=== PATIENT | female | born 1995 | race Asian ===

== ENCOUNTER 2018-10-13 12:31 | Emergency (ER) | payer OTHER ==
--- NOTE | 2018-10-13 13:23 | ED ---
Abdominal Pain/Female - HPI Summary HPI Summary: This patient is a 23 year old F brought in by ambulance to [facility] with a chief complaint of right lower flank pain radiating to her right shoulder at 10:30 today lasting for 30 minutes. Patient now only feels mild pain. She reports that the pain was a sore feeling with numbness, such that she couldnt move her right side. Patient denies vomiting, diarrhea, fever, any pain, dysuria, changes in urinary frequency, and chills. Her last normal BM was last night. Patient denies being sexually active. She is currently on the 5th day of her menstrual period and reports that she usually only gets pain on her menstrual periods on the first day. Patient was not given any medication in the ambulance and denies any PMHx of kidney stones. - History of Current Complaint Chief Complaint: EDAbdPain Stated Complaint: ABD PAIN PER EMS Time Seen by Provider: 10/13/18 13:04 Hx Obtained From: Patient Onset/Duration: Lasting Minutes - 30 minutes, Resolved Timing: Frequency Of Episodes - 1 Severity Currently: Mild Pain Intensity: 0 Pain Scale Used: 0-10 Numeric Location: Flank - Right flank Radiates: Yes Radiates to: Other - Right shoulder Character: Other: - Sore and numb Associated Signs and Symptoms: Negative: Fever, Urinary Symptoms - dysuria and changes in frequency, Vomiting, Diarrhea, Other: - Any pain, chills PMH/Surg Hx/FS Hx/Imm Hx Endocrine/Hematology History: Denies: Hx Diabetes Cardiovascular History: Denies: Hx Coronary Artery Disease - Surgical History Surgery Procedure, Year, and Place: None Infectious Disease History: No Infectious Disease History: Denies: Traveled Outside the [place] in Last 30 Days - Family History Known Family History: Negative: Cardiac Disease, Diabetes - Social History Alcohol Use: None Hx Substance Use: No Hx Tobacco Use: No Review of Systems Negative: Fever, Chills Negative: Vomiting, Diarrhea Positive: flank pain - Right flank pain radiating to her right shoulder. It was a sore feeling with numbness, such that she couldnt move her right side. Negative: dysuria, frequency Negative: Other - any pain All Other Systems Reviewed And Are Negative: Yes Physical Exam - Summary Physical Exam Summary: GENERAL: Patient is a well-developed and nourished __(F)__ who is lying comfortable in the stretcher. Patient is not in any acute respiratory distress. HEAD AND FACE: Normocephalic EYES: PERRLA, EOMI x 2. EARS: Hearing grossly intact. MOUTH: Oropharynx within normal limits. NECK: Supple, trachea is midline, no adenopathy, no JVD, no carotid bruit. CHEST: Symmetric, no tenderness at palpation LUNGS: Clear to auscultation bilaterally. No wheezing or crackles. CVS: Regular rate and rhythm, S1 and S2 present, no murmurs or gallops appreciated. ABDOMEN: Soft, mildly tender on right lower side. Bowel sounds are normal. No abdominal abnormal pulsations. EXTREMITIES: Full ROM in all major joints, no edema, no cyanosis or clubbing. NEURO: Alert and oriented x 3. No acute neurological deficits. Speech is normal and follows commands. SKIN: Dry and warm Triage Information Reviewed: Yes Vital Signs On Initial Exam: Initial Vitals Temp Pulse Resp BP Pulse Ox 98.3 F 79 16 100/71 99 10/13/18 12:32 10/13/18 12:32 10/13/18 12:32 10/13/18 12:32 10/13/18 12:32 Vital Signs Reviewed: Yes Diagnostics - Vital Signs Vital Signs Temp Pulse Resp BP Pulse Ox 10/13/18 13:19 78 110/64 100 10/13/18 13:18 79 99 10/13/18 12:32 98.3 F 79 16 100/71 99 - Laboratory Result Diagrams: 10/13/18 13:46 10/13/18 13:46 Lab Statement: Any lab studies that have been ordered have been reviewed, and results considered in the medical decision making process. - Ultrasound No standard instances Ultrasound Interpretation Completed By: Radiologist Summary of Ultrasound Findings: 15:26 Gallbladder US. MILD RIGHT HYDRONEPHROSIS. 15:27 Pelvis US. TRACE AMOUNT OF FREE FLUID WITHIN THE PELVIS. THIS MAY BE PHYSIOLOGIC WITHIN A. REPRODUCTIVE AGE FEMALE. OTHERWISE UNREMARKABLE TRANSABDOMINAL ULTRASOUND OF THE PELVIS. 15:28 Abdomen US. THE APPENDIX IS NOT VISUALIZED. THERE IS NO FREE OR LOCULATED FLUID WITHIN THE RIGHT LOWER. QUADRANT. ED Physician has reviewed this imaging report. Abdominal Pain Fem Course/Dx - Course Course Of Treatment: This patient is a 23 year old F brought in by ambulance to [facility] with a chief complaint of right lower flank pain radiating to her right shoulder at 10:30 today lasting for 30 minutes. Physical exam revealed that she was mildly tender on her right lower flank and quadrant. 15:26 Gallbladder US. MILD RIGHT HYDRONEPHROSIS. 15:27 Pelvis US. TRACE AMOUNT OF FREE FLUID WITHIN THE PELVIS. THIS MAY BE PHYSIOLOGIC WITHIN A. REPRODUCTIVE AGE FEMALE. OTHERWISE UNREMARKABLE TRANSABDOMINAL ULTRASOUND OF THE PELVIS. 15:28 Abdomen US. THE APPENDIX IS NOT VISUALIZED. THERE IS NO FREE OR LOCULATED FLUID WITHIN THE RIGHT LOWER. QUADRANT. I discussed results with patient and she reports feeling better. She is hemodynamically stable and safe for discharge with dx of hydronephrosis of her right kidney. Strict return precautions given and she will otherwise follow up with his/her PCP. I also referred her to Dr. Lozano, urology, for followup. - Diagnoses Provider Diagnoses: Hydronephrosis of right kidney Discharge - Sign-Out/Discharge Documenting (check all that apply): Patient Departure - D/C home Patient Received Moderate/Deep Sedation with Procedure: No - Discharge Plan Condition: Stable Disposition: HOME Patient Education Materials: Kidney Stones (ED), Hydronephrosis (ED) Referrals: Terrance Lozano MD [Medical Doctor] - 3 Days Additional Instructions: Follow up with your primary care physician and Dr. Lozano, urology, in 1-3 days. RETURN TO THE EMERGENCY DEPARTMENT FOR CHANGING OR WORSENING SYMPTOMS. - Billing Disposition and Condition Condition: STABLE Disposition: Home - Attestation Statements Document Initiated by Clarence: Yes Documenting Scribe: Mckinley Christie Provider For Whom Clarence is Documenting (Include Credential): Theo Booth MD Scribe Attestation: Mckinley Johnson, scribed for Theo Booth MD on 10/13/18 at 1800. Scribe Documentation Reviewed: Yes Provider Attestation: The documentation as recorded by the Mckinley marsh accurately reflects the service I personally performed and the decisions made by me, Theo Booth MD Status of Scribe Document: Viewed
[2018-10-13 13:55] LABS: ABS Basophils 0 10^3/ul (0-0.2); ABS Eosinophils 0 10^3/ul (0-0.6); ABS Monocytes 0.4 10^3/ul (0-0.8); ABS Neutrophils 10.3 10^3/ul (1.5-7.7); ABS Nucleated RBC 0 10^3/ul; Eosinophil % 0.3 %; Hematocrit 38 % (33-41); Hemoglobin 12.9 g/dL (12.0-16.0); Lymphocyte % 8.3 %; Mean Corpuscular HGB Conc 35 g/dL (31-36); Mean Corpuscular Hemoglobin 31 pg (27-31); Mean Corpuscular Volume 90 fL (80-97); Mean Platelet Volume 7.3 fL (7.4-10.4); Nucleated Red Blood Cells % 0; Platelet Count 321 10^3/uL (150-450); Red Blood Count 4.16 10^6 /uL (3.70-4.87); Red Cell Distribution Width 12 % (10.5-15); White Blood Count 11.7 10^3/uL (3.5-10.8)
[2018-10-13 14:13] LABS: ALT 7 U/L (7-52); AST 13 U/L (13-39); Albumin 4.3 g/dL (3.2-5.2); Albumin/Globulin Ratio 1.6 (1-3); Alkaline Phosphatase 42 U/L (34-104); Anion Gap 7 mmol/L (2-11); BUN/Creatinine Ratio 18.2 (8-20); Blood Urea Nitrogen 12 mg/dL (6-24); C Reactive Protein < 1.00 mg/L (<8.01); CO2 Carbon Dioxide 23 mmol/L (22-32); Calcium 8.7 mg/dL (8.6-10.3); Chloride 106 mmol/L (101-111); EGFR African American 134.3 (>60); Globulin 2.7 g/dL (2-4); Glucose 94 mg/dL (70-100); Potassium 3.7 mmol/L (3.5-5.0); Sodium 136 mmol/L (135-145)
[2018-10-13 14:17] LABS: Urine Appearance Cloudy; Urine Bilirubin Negative (Negative); Urine Blood Negative (Negative); Urine Color Yellow; Urine Glucose Negative (Negative); Urine Ketones Negative (Negative); Urine Nitrite Negative (Negative); Urine Protein Negative (Negative); Urine Specific Gravity 1.021 (1.010-1.030); Urine Urobilinogen Negative (Negative)
[2018-10-13 14:18] LABS: HCG Pregnancy < 0.60 mIU/mL
[2018-10-13 15:54] VITALS: BP 0/0
== END 2018-10-13 15:53 | disposition home or self-care (01) ==
LOC: ED 12:31 → EDSEX 12:31 → ED 15:53
DX: N13.30 Unspecified hydronephrosis (principal); Z87.442 Personal history of urinary calculi; M25.511 Pain in right shoulder; R20.0 Anesthesia of skin
CPT/HCPCS: 36415; 76705; 76856; 80053; 81003; 83605; 83690; 84702; 85025; 86140; 99283

== ENCOUNTER 2019-05-09 18:09 | Emergency (ER) | payer OTHER ==
--- NOTE | 2019-05-09 18:44 | ED ---
Substance Abuse/Use - HPI Summary HPI Summary: Pt is a 23 y/o F presenting to the ED after an overdose of Zzzquil. Pt states she feels depressed and after an argument with her boyfriend, pt took 12 pills of Zzzquil at around 17:00 on 05/09/19. Pt states she wanted to sleep it away. Pt denies she tried attempting suicide or has SI. Pt admits SI in middle school with no attempt that has since resolved. Pt feels drowsiness and fatigue. Pt denies alcohol, tobacco, or drug use. Pt denies any medications, PSHx, or PMHx. Pt is a [employer] student. Pt is from [facility], but lives alone. Pt has been with her boyfriend for one year. Pt will be signed out to Dr. Reyes at 22:00 on 05/09/19 pending evaluation. - History Of Current Complaint Chief Complaint: EDOverdose Stated Complaint: OVERDOSE PER EMS Time Seen by Provider: 05/09/19 18:17 Hx Obtained From: Patient Ingestion History: Type/Name Of Drug - Zzzquil, Amount Ingested - 12 pills of Zzzquil Overdose Characteristics: Oral Severity Initially: Moderate Severity Currently: Moderate Character: Depressed Aggravating Factor(s): Recent Stress - Argument with boyfriend Alleviating Factor(s): Nothing Associated Signs And Symptoms: Intentional Ingestion, Other: - Positive drowsiness and fatigue - Allergies/Home Medications Allergies/Adverse Reactions: Allergies Allergy/AdvReac Type Severity Reaction Status Date / Time No Known Allergies Allergy Verified 05/09/19 18:28 Home Medications: Home Medications NK [No Home Medications Reported] 05/09/19 [History Confirmed 05/09/19] PMH/Surg Hx/FS Hx/Imm Hx Previously Healthy: Yes Endocrine/Hematology History: Denies: Hx Diabetes Cardiovascular History: Denies: Hx Coronary Artery Disease Sensory History: Denies: Hx Legally Blind, Hx Deafness Opthamlomology History: Denies: Hx Legally Blind EENT History: Denies: Hx Deafness - Surgical History Surgical History: None Surgery Procedure, Year, and Place: None - Immunization History Immunizations Up to Date: Yes Infectious Disease History: No Infectious Disease History: Denies: Traveled Outside the [place] in Last 30 Days - Family History Known Family History: Negative: Cardiac Disease, Diabetes - Social History Occupation: Student Lives: Alone Alcohol Use: None Hx Substance Use: No Substance Use Type: Reports: None Hx Tobacco Use: No Smoking Status (MU): Never Smoked Tobacco Review of Systems Positive: Fatigue, Other - Positive drowsiness Positive: Depressed, Other - Negative SI or attempts at the present time All Other Systems Reviewed And Are Negative: Yes Physical Exam - Summary Physical Exam Summary: Constitutional: Well-developed, Well-nourished, Alert. (-) Distressed Skin: Warm, Dry HENT: Normocephalic; Atraumatic Eyes: Conjunctiva normal. Pupils are 6 mm and reactive. Neck: Musculoskeletal ROM normal neck. (-) JVD, (-) Stridor, (-) Tracheal deviation Cardio: Rhythm regular, rate normal, Heart sounds normal; Intact distal pulses; Radial pulses are 2+ and symmetric. (-) Murmur Pulmonary/Chest wall: Effort normal. (-) Respiratory distress, (-) Wheezes, (-) Rales Abd: Soft, (-) tenderness, (-) Distension, (-) Guarding, (-) Rebound Musculoskeletal: (-) Edema Lymph: (-) Cervical adenopathy Neuro: Alert, Oriented x3 Psych: Mood and affect Normal Triage Information Reviewed: Yes Vital Signs On Initial Exam: Initial Vitals Temp Pulse Resp BP Pulse Ox 97.7 F 80 16 116/75 100 05/09/19 18:16 05/09/19 18:16 05/09/19 18:16 05/09/19 18:16 05/09/19 18:16 Vital Signs Reviewed: Yes Procedures - Sedation Patient Received Moderate/Deep Sedation with Procedure: No Diagnostics - Vital Signs Vital Signs Temp Pulse Resp BP Pulse Ox 05/09/19 18:16 97.7 F 80 16 116/75 100 - Laboratory Result Diagrams: 05/09/19 18:29 05/09/19 18:28 Lab Statement: Any lab studies that have been ordered have been reviewed, and results considered in the medical decision making process. - EKG 18:29 Cardiac Rate: NL - [address] Segment: Normal Ectopy: None Summary of EKG Findings: EKG at 18:29 shows 82 BPM with normal sinus rhythm, no STEMI, normal intervals. Reviewed and interpreted by ED physician. Re-Evaluation - Re-Evaluation 1st re-eval Re-Evaluation Time: 18:40 Change: Unchanged Comment: At 18:40, pt is medically cleared for a MH evaluation. Course/Dx - Course Course Of Treatment: Patient is here after taking 300 mg of Benadryl and attempt to "sleep" after getting into an argument with her boyfriend. Patient denied dyspnea suicidal attempts or any suicidal ideations. Patient was overall asymptomatic by the time she got here outside of being sleepy. Patient had a normal EKG with normal intervals. Patient had a negative toxicology workup. Patient was medically cleared by myself and sent for mental health evaluation. Patient was signed out to Dr. Reyes prior to mental health evaluation - Diagnoses Provider Diagnoses: Depressive disorder Discharge ED - Sign-Out/Discharge Documenting (check all that apply): Sign-Out Patient Signing out patient TO: Katy Reyes - 22:00 on 05/09/19 - Discharge Plan Condition: Stable Disposition: HOME Patient Education Materials: Depression (ED) Forms: *School Release Referrals: [facility] [Outside] Additional Instructions: Follow up with [facility] at 13:00 today with Zoraida Tomas. Return to the Emergency Department if you experience new or worsening symptoms. - Billing Disposition and Condition Condition: STABLE Disposition: Home - Attestation Statements Document Initiated by Scribe: Yes Documenting Nevinibe: Nica Rivera Provider For Whom Clarence is Documenting (Include Credential): Ramez Naidu MD Scribe Attestation: Nica Johnson, scribed for Ramez Naidu MD on 05/11/19 at 0737. Scribe Documentation Reviewed: Yes Provider Attestation: The documentation as recorded by the Nica marsh accurately reflects the service I personally performed and the decisions made by me, Ramez Naidu MD Status of Scribe Document: Viewed
[2019-05-09 18:53] LABS: ABS Basophils 0.1 10^3/ul (0-0.2); ABS Eosinophils 0.2 10^3/ul (0-0.6); ABS Lymphocytes 2.6 10^3/ul (1.0-4.8); ABS Monocytes 0.4 10^3/ul (0-0.8); Eosinophil % 2.5 %; Hematocrit 40 % (35-47); Hemoglobin 13.5 g/dL (12.0-16.0); Mean Corpuscular HGB Conc 34 g/dL (31-36); Mean Corpuscular Hemoglobin 30 pg (27-31); Mean Corpuscular Volume 89 fL (80-97); Mean Platelet Volume 7.2 fL (7.4-10.4); Nucleated Red Blood Cells % 0.1; Platelet Count 388 10^3/uL (150-450); Red Blood Count 4.45 10^6 /uL (3.70-4.87); Red Cell Distribution Width 13 % (10-15); White Blood Count 9.4 10^3/uL (3.5-10.8)
[2019-05-09 18:58] LABS: Urine Appearance Clear; Urine Bacteria 1+ (Absent); Urine Bilirubin Negative (Negative); Urine Blood 2+ (Negative); Urine Color Colorless; Urine Glucose Negative (Negative); Urine Ketones Negative (Negative); Urine Nitrite Negative (Negative); Urine Protein Negative (Negative); Urine Red Blood Cell Trace(0-2/hpf) (Absent); Urine Specific Gravity 1.003 (1.010-1.030); Urine Squamous Epithelial Cell Present (Absent); Urine Urobilinogen Negative (Negative); Urine White Blood Cell Absent (Absent)
[2019-05-09 19:02] LABS: ALT 12 U/L (7-52); AST 15 U/L (13-39); Albumin 4.6 g/dL (3.2-5.2); Albumin/Globulin Ratio 1.4 (1-3); Alkaline Phosphatase 57 U/L (34-104); Anion Gap 3 mmol/L (2-11); BUN/Creatinine Ratio 17.5 (8-20); Blood Urea Nitrogen 11 mg/dL (6-24); CO2 Carbon Dioxide 30 mmol/L (22-32); Calcium 9.5 mg/dL (8.6-10.3); Chloride 103 mmol/L (101-111); EGFR African American 141.7 (>60); EGFR Non-African American 117.1 (>60); Globulin 3.3 g/dL (2-4); Glucose 89 mg/dL (70-100); Potassium 3.9 mmol/L (3.5-5.0); Sodium 136 mmol/L (135-145); Total Protein 7.9 g/dL (6.4-8.9)
[2019-05-09 19:03] LABS: Acetaminophen < 15 mcg/mL; Alcohol < 10 mg/dL (<10); Salicylate < 2.50 mg/dL (<30)
[2019-05-09 19:12] LABS: Urine Benzodiazepine Screen None Detected (None Detect); Urine Opiates Screen None Detected (None Detect)
--- NOTE | 2019-05-09 21:53 | ED ---
Progress - Progress Note Progress Note: The patient was signed out from Dr. Naidu upon shift change on 05/09/19 at 22: 00, awaiting MHE and pending disposition. Re-Evaluation - Re-Evaluation 1st re-eval Re-Evaluation Time: 18:40 Change: Unchanged Comment: At 18:40, pt is medically cleared for a MH evaluation. Course/Dx - Course Course Of Treatment: The patient was signed out from Dr. Naidu upon shift change on 05/09/19 at 22:00, awaiting MHE and pending disposition. Mental health freight booker, Lazaro RN, reviewed case with Dr. Angelo, psychiatry, and they recommend discharge with definite follow up. Lazaro states he will review case with manufacturing maintenance manager at [facility] to ensure that patient will have definite follow up appointment with a counselor. Lazaro states that after speaking with crisis managger, patient will have to be held in the ED until morning because they have to speak to counselor at [facility] to set up an appointment before patinet can be discharged. The patient will be signed out to Dr. Delaney upon shift change on 05/10/19 at 07:00 pending discharge disposition. - Diagnoses Provider Diagnoses: Depressive disorder - Provider Notifications Discussed Care Of Patient With: Noah Angelo Time Discussed With Above Provider: 01:00 Instructed by Provider To: Other - Dr. Angelo, psychiatry, recommends discharge Discharge ED - Sign-Out/Discharge Documenting (check all that apply): Sign-Out Patient Signing out patient TO: Facundo Delaney - pending transfer disposition Receiving patient FROM: Jimmy Kahn - Discharge Plan Condition: Stable Referrals: No Primary Care Phys,NOPCP [Primary Care Provider] - - Billing Disposition and Condition Condition: STABLE - Attestation Statements Document Initiated by Scribe: Yes Documenting Scribe: Nicole Goodman Provider For Whom Scribe is Documenting (Include Credential): Katy eRyes MD Scribe Attestation: Nicole Johnson, scribed for Katy Reyes MD on 05/10/19 at 0342. Scribe Documentation Reviewed: Yes Provider Attestation: The documentation as recorded by the scribeNicole accurately reflects the service I personally performed and the decisions made by me, Katy Reyes MD Status of Scribe Document: Viewed Procedures - Sedation Patient Received Moderate/Deep Sedation with Procedure: No
--- NOTE | 2019-05-10 07:15 | ED ---
Progress - Progress Note Progress Note: The patient was signed out from Dr. Reyes upon shift change on 05/10/19 at 700 , pending disposition. - Consult/PCP Time Called: 22:30 Re-Evaluation - Re-Evaluation 1st re-eval Re-Evaluation Time: 18:40 Change: Unchanged Comment: At 18:40, pt is medically cleared for a MH evaluation. Course/Dx - Course Course Of Treatment: The patient was signed out from Dr. Naidu upon shift change on 05/09/19 at 22:00, awaiting MHE and pending disposition. Mental health science professor, Lazaro NIETO, reviewed case with Dr. Angelo, psychiatry, and they recommend discharge with definite follow up. Lazaro states he will review case with claims manager at [facility] to ensure that patient will have definite follow up appointment with a counselor. Lazaro states that after speaking with crisis managger, patient will have to be held in the ED until morning because they have to speak to counselor at [facility] to set up an appointment before patinet can be discharged. The patient will be signed out to Dr. Delaney upon shift change on 05/10/19 at 07:00 pending discharge disposition. - Diagnoses Provider Diagnoses: Depressive disorder - Provider Notifications Time Discussed With Above Provider: 01:00 Instructed by Provider To: Other - Dr. Angelo, psychiatry, recommends discharge Discharge ED - Sign-Out/Discharge Documenting (check all that apply): Receiving Sign-Out Receiving patient FROM: Katy Reyes - The patient is a sign-out from Dr. Katy Reyes MD, to Dr. Facundo Delaney MD, at change of shift at 0700 on , pending discharge. - Discharge Plan Condition: Stable Disposition: HOME Patient Education Materials: Depression (ED) Forms: *School Release Referrals: [facility] [Outside] Additional Instructions: Follow up with [facility] at 13:00 today with Zoraida Tomas. Return to the Emergency Department if you experience new or worsening symptoms. - Attestation Statements Document Initiated by Scribe: Yes Documenting Scribe: Kentrell Orlando Provider For Whom Scribe is Documenting (Include Credential): Dr. Facundo Delaney MD Scribe Attestation: I, Kentrell Orlando, scribed for Dr. Facundo Delaney MD on 05/10/19 at 0855. Status of Scribe Document: Ready
[2019-05-10 09:02] VITALS: BP 103/65
== END 2019-05-10 08:56 | disposition home or self-care (01) ==
LOC: ED 18:09
DX: F32.9 Major depressive disorder, single episode, unspecified (principal)
CPT/HCPCS: 36415; 80053; 80307; 80320; 80329; 81003; 81015; 85025; 87086; 93005; 99285; G0480